=== PATIENT | male | born 1995 | race Caucasian/White ===

== ENCOUNTER 2019-05-25 03:43 | Emergency (ER) | payer BC ==
[2019-05-25] MEDS ORDERED: Ondansetron 4 MG Tab.DIS PO ONE (04:31)
[2019-05-25] MEDS ORDERED: Acetaminophen/oxyCODONE 325-5 MG Tab PO ONE (04:31)
--- NOTE | 2019-05-25 04:34 | EDM.PDOC ---
ED HPI GENERAL MEDICAL PROBLEM - General Chief Complaint: ENT Problem Stated Complaint: LEFT SIDE MOUTH/JAW PAIN Time Seen by Provider: 05/25/19 04:20 Source of Information: Reports: Patient History Limitations: Reports: No Limitations - History of Present Illness INITIAL COMMENTS - FREE TEXT/NARRATIVE: 4-year-old male presents to the ED with his with severe left mandibular pain. States started out as a dull ache discomfort over the last 24 hours and has progressed to severe intense pain that is constant. It radiates up towards the left ear but is centered mostly at the angle of his left mandible. He had recent dental work done in February of this year and did have panoramic x-rays done. He was told his right upper wisdom tooth is pushing against his other teeth but the other teeth although they are unable erupted do not appear to be coming in abnormally. Is there were bothering him the hip and left alone. He has had no injuries to his face or jaw. No recent colds or sinus congestion. Patient is taking 4 Aleve tablets without any relief of the pain. Onset: Gradual Onset Date: 05/23/19 Duration: Day(s): (Started before bed night before last), Constant, Getting Worse Location: Reports: Face Quality: Reports: Ache (Left angle of mandible) Severity: Severe (constant severe aching pain.) Improves with: Reports: None ( 10 out of 10 ) Worsens with: Reports: Other (Worsens with clenching his teeth.) Context: Denies: Activity, Exercise, Lifting, Sick Contact, Trauma, Other Associated Symptoms: Reports: No Other Symptoms Treatments [employer]: Reports: NSAIDS Left Lower Jaw Pain Score (Numeric/FACES): 6 - Related Data Allergies Allergy/AdvReac Type Severity Reaction Status Date / Time No Known Allergies Allergy Verified 05/25/19 04:20 Home Meds: Home Meds oxyCODONE HCl/Acetaminophen [Percocet 5-325 mg Tablet] 1 - 2 each PO Q4H PRN # 24 tablet 05/25/19 [Rx] Past Medical History - Past Health History Medical/Surgical History: Denies Medical/Surgical History Social & Family History - Family History Family Medical History: Noncontributory - Living Situation & Occupation Occupation: Employed ED ROS ENT - Review of Systems Review Of Systems: See Below Constitutional: Reports: Decreased Appetite. Denies: Fever, Chills, Malaise, Weakness, Fatigue, Weight Loss HEENT: Reports: Dental Pain Respiratory: Reports: No Symptoms Cardiovascular: Reports: No Symptoms (Left mandibular pain at the angle of the mandible presumably from dental origin.) Endocrine: Reports: No Symptoms GI/Abdominal: Reports: No Symptoms : Reports: No Symptoms Musculoskeletal: Reports: No Symptoms Skin: Reports: No Symptoms Neurological: Reports: No Symptoms Psychiatric: Reports: No Symptoms Hematologic/Lymphatic: Reports: No Symptoms Immunologic: Reports: No Symptoms ED EXAM, ENT - Physical Exam Exam: See Below Exam Limited By: No Limitations General Appearance: WD/WN, Moderate Distress, Other (Seems to be in a good deal of pain. Temperature 36.0 pulse is 82 and sinus respiratory 16 sats 100% BP elevated 150/91.) Eye Exam: Bilateral Eye: Normal Inspection Ears: Normal External Exam, Normal TMs Mouth/Throat: Dental Pain, Other (There is very mild pain on firm palpation of the left lower second molar tooth with tongue blade. The tissue behind the second molar is minimally erythematous suggesting an unerupted wisdom tooth is causing his current pain syndrome. He has very minimal pain in his left temporomandibular joint.) Head: Atraumatic ( Otherwise do not appear to be infected the gingiva are normal without abscess obviously apparent.), Normocephalic Neck: Normal Inspection (No pain on firm palpation over his maxillary sinuses.) , Supple, Non-Tender, Full Range of Motion. No: Lymphadenopathy (L), Lymphadenopathy (R) Respiratory/Chest: No Respiratory Distress, Lungs Clear, Normal Breath Sounds, No Accessory Muscle Use, Chest Non-Tender Course - Vital Signs Last Recorded V/S: Last Vital Signs Temp 36.0 C 05/25/19 04:17 Pulse 82 05/25/19 04:17 Resp 16 05/25/19 04:17 BP 150/91 H 05/25/19 04:17 Pulse Ox 100 05/25/19 04:17 - Orders/Labs/Meds Meds: Medications Discontinued Medications Generic Name Dose Route Start Last Admin Trade Name Freq PRN Reason Stop Dose Admin Ondansetron HCl 4 mg 05/25/19 04:31 05/25/19 04:35 Zofran Odt PO 05/25/19 04:32 4 mg ONETIME ONE Administration Oxycodone/Acetaminophen 2 tab 05/25/19 04:31 05/25/19 04:35 Percocet 325-5 Mg PO 05/25/19 04:32 2 tab ONETIME ONE Administration - Radiology Interpretation Free Text/Narrative:: 24-year-old male presents the ED with left mandibular pain. Were able to localize the pain pretty well to the left angle of the mandible. His mandibular function is normal although he has minimal pain on palpation of the left temporomandibular joint. Contraction of the masseter muscle does cause some increased pain. Firm palpation with tongue blade over the left lower second molar cause very minimal discomfort. I suspect his current pain syndrome is due to on it on erupted left lower third molar tooth. Floor of the mouth is otherwise normal. Oropharynx is normal. Percocet 5/325 mg tabs 2 with Zofran 4 mg sublingual tablet in the ED. Prescription written for 24 tablets of Percocet 5/325 mg strength to be taken one or 2 every 4-6 hours for pain relief. He is to follow-up with dentist as soon as possible. I suspect the patient will likely last a good week to 10 days due to unerupted tooth. Departure - Departure Time of Disposition: 04:31 Disposition: Home, Self-Care 01 Condition: Fair Clinical Impression: Pain, dental - Discharge Information *PRESCRIPTION DRUG MONITORING PROGRAM REVIEWED*: No *COPY OF PRESCRIPTION DRUG MONITORING REPORT IN PATIENT MARIVEL: No Prescriptions: oxyCODONE HCl/Acetaminophen [Percocet 5-325 mg Tablet] 1 - 2 each PO Q4H PRN # 24 tablet PRN Reason: pain relief. Referrals: PCP,None [Primary Care Provider] - Forms: ED Department Discharge Additional Instructions: Evaluation in the ER tonight in regards to diffuse left lower mandible pain. Emanation reveals pain is coming likely from an unerupted left third molar tooth or wisdom tooth. There is minimal pain on delayed examination of the second lower molar tooth. Suggest consultation with your dentist was done recent panoramic x-rays of your teeth to see where the location of this tooth is. Otherwise further panoramic x-rays need to be done to make sure there is no abscess developing on the root of the second molar tooth. In the meantime treatment is Percocet tabs 5/3/25 milligrams 2 tablets usually every 4-6 hours needed for pain relief. Continue Motrin 600 mg every 6 hours to reduce pain and inflammation as well. Follow-up with dentist when able.
== END 2019-05-25 04:40 | disposition home or self-care (01) ==
LOC: JD.ED 03:43
DX: K08.89 Other specified disorders of teeth and supporting structures (principal)
CPT/HCPCS: 99283; A9270

== ENCOUNTER 2020-07-02 21:26 | Emergency (ER) | payer BC ==
--- NOTE | 2020-07-02 21:56 | EDM.PDOC ---
ED HPI GENERAL MEDICAL PROBLEM - General Chief Complaint: Respiratory Problem Stated Complaint: chills headache shakes Time Seen by Provider: 07/02/20 21:54 - History of Present Illness INITIAL COMMENTS - FREE TEXT/NARRATIVE: 25-year-old male presents to the emergency room with a headache. This headache started yesterday gradually got worse and really got nasty today. This right-sided headache seems to come from the base of his neck and radiate up towards his right forehead and above his right ear. He has had some associated chills. Patient has not had any vision changes with this. He has some mild nausea. This headache seems to worsen with activities and turning his head. The patient does not have a history of headaches and does not have a family history of headache syndromes. Right Headache Pain Score (Numeric/FACES): 5 - Related Data Allergies Allergy/AdvReac Type Severity Reaction Status Date / Time No Known Allergies Allergy Verified 05/25/19 04:20 Home Meds: Home Meds . [No Known Home Meds] 07/02/20 [History] Past Medical History - Past Health History Medical/Surgical History: Denies Medical/Surgical History Social & Family History - Family History Family Medical History: No Pertinent Family History - Caffeine Use Caffeine Use: Reports: None - Living Situation & Occupation Occupation: Employed ED ROS GENERAL - Review of Systems Review Of Systems: See Below Constitutional: Reports: Chills. Denies: Fever HEENT: Reports: No Symptoms Respiratory: Reports: No Symptoms, Cough Endocrine: Reports: No Symptoms GI/Abdominal: Reports: Nausea. Denies: Abdominal Pain, Constipation, Diarrhea, Vomiting : Reports: No Symptoms Musculoskeletal: Reports: No Symptoms Skin: Reports: No Symptoms Neurological: Reports: Headache Psychiatric: Reports: No Symptoms Hematologic/Lymphatic: Reports: No Symptoms ED EXAM, GENERAL - Physical Exam Exam: See Below Exam Limited By: No Limitations General Appearance: Alert, No Apparent Distress Eye Exam: Bilateral Eye: EOMI, Normal Inspection, PERRL Ears: Normal External Exam, Normal Canal, Hearing Grossly Normal, Normal TMs Nose: Normal Inspection, Normal Mucosa, No Blood Throat/Mouth: Normal Inspection, Normal Lips, Normal Teeth, Normal Gums, Normal Oropharynx, Normal Voice, No Airway Compromise Head: Atraumatic, Normocephalic Neck: Normal Inspection, Supple, Other (Patient has marked paraspinous tenderness in the right and at the insertion of the skull. This does elicit the pain that he has been complaining of.). No: Lymphadenopathy (L), Lymphadenopathy (R), Tender Midline Respiratory/Chest: No Respiratory Distress, Lungs Clear, Normal Breath Sounds Cardiovascular: Regular Rate, Rhythm, No Edema, No Murmur GI/Abdominal: Normal Bowel Sounds, Soft, Non-Tender Back Exam: Normal Inspection. No: CVA Tenderness (L), CVA Tenderness (R) Extremities: Normal Inspection, No Pedal Edema Neurological: Alert, Oriented, Normal Cognition, Other (Cranial nerves II through XII grossly intact all muscle groups the upper and lower extremities are equal and appropriate bilaterally. Cerebellar testing is within normal limits. Deep tendon reflexes are equal and appropriate at the brachial radialis bilaterally.) Skin Exam: Warm, Dry, Intact Lymphatic: No Adenopathy Course - Vital Signs Last Recorded V/S: Last Vital Signs Temp 36.6 C 07/02/20 22:01 Pulse 93 07/02/20 22:01 Resp 20 07/02/20 22:01 BP 140/88 07/02/20 22:01 Pulse Ox 99 07/02/20 22:01 - Orders/Labs/Meds Orders: Active Orders 24 hr Category Date Time Status CORONAVIRUS COVID-19 PCR PH[facility] Stat Lab 07/02/20 22:45 Received Isolation [COMM] Routine Oth 07/02/20 22:19 Ordered Labs: Laboratory Tests 07/02/20 07/02/20 Range/Units 22:45 22:45 WBC 9.03 (4.23-9.07) K/mm3 RBC 5.60 (4.63-6.08) M/mm3 Hgb 15.6 (13.7-17.5) gm/dl Hct 47.5 (40.1-51.0) % MCV 84.8 (79.0-92.2) fl MCH 27.9 (25.7-32.2) pg MCHC 32.8 (32.2-35.5) g/dl RDW Std Deviation 42.6 (35.1-43.9) fL Plt Count 292 (163-337) K/mm3 MPV 9.2 L (9.4-12.3) fl Neut % (Auto) 66.3 (34.0-67.9) % Lymph % (Auto) 25.7 (21.8-53.1) % Travis % (Auto) 6.4 (5.3-12.2) % Eos % (Auto) 0.8 (0.8-7.0) Baso % (Auto) 0.7 (0.1-1.2) % Neut # (Auto) 5.99 H (1.78-5.38) K/mm3 Lymph # (Auto) 2.32 (1.32-3.57) K/mm3 Travis # (Auto) 0.58 (0.30-0.82) K/mm3 Eos # (Auto) 0.07 (0.04-0.54) K/mm3 Baso # (Auto) 0.06 (0.01-0.08) K/mm3 Sodium 139 (136-145) mEq/L Potassium 3.6 (3.5-5.1) mEq/L Chloride 104 (98-107) mEq/L Carbon Dioxide 25 (21-32) mEq/L Anion Gap 13.6 (5-15) BUN 15 (7-18) mg/dL Creatinine 1.1 (0.7-1.3) mg/dL Est Cr Clr Drug Dosing 107.44 mL/min Estimated GFR (MDRD) > 60 (>60) mL/min BUN/Creatinine Ratio 13.6 L (14-18) Glucose 113 H (74-106) mg/dL Calcium 8.7 (8.5-10.1) mg/dL Total Bilirubin 0.4 (0.2-1.0) mg/dL AST 27 (15-37) U/L ALT 72 H (16-63) U/L Alkaline Phosphatase 108 (46-116) U/L Total Protein 7.4 (6.4-8.2) g/dl Albumin 3.7 (3.4-5.0) g/dl Globulin 3.7 gm/dL Albumin/Globulin Ratio 1.0 (1-2) Meds: Medications Discontinued Medications Generic Name Dose Route Start Last Admin Trade Name Freq PRN Reason Stop Dose Admin Diphenhydramine HCl 25 mg 07/02/20 22:15 07/02/20 22:42 Benadryl IVPUSH 07/02/20 22:16 25 mg ONETIME ONE Administration Lactated Ringer's 1,000 mls @ 999 mls/hr 07/02/20 22:15 07/02/20 22:41 Ringers, Lactated IV 07/02/20 23:15 999 mls/hr .BOLUS ONE Administration Lorazepam 1 mg 07/02/20 22:15 07/02/20 22:42 Ativan IVPUSH 07/02/20 22:16 1 mg ONETIME ONE Administration Ondansetron HCl 4 mg 07/02/20 22:15 07/02/20 22:42 Zofran IVPUSH 07/02/20 22:16 4 mg ONETIME ONE Administration - Re-Assessments/Exams Free Text/Narrative Re-Assessment/Exam: 07/03/20 00:26 Patient received a liter of LR 25 5 mg of Benadryl IV 1 mg of Ativan 4 mg of Zofran and he is doing much better he would like to go home and get some rest. Departure - Departure Time of Disposition: 00:27 Disposition: Home, Self-Care 01 Clinical Impression: Tension headache - Discharge Information Referrals: PCP,None [Primary Care Provider] - Forms: ED Department Discharge Additional Instructions: Return to the emergency room with any questions problems or worsening symptoms. Go home and get some sleep. You were given some medication that can cause some sedation. Make sure you get a ride home from the emergency room. Do not drive or return to work within 12 hours of receiving this medication Sepsis Event Note (ED) - Focused Exam Vital Signs: Vital Signs Temp Pulse Resp BP Pulse Ox 07/02/20 22:01 36.6 C 93 20 140/88 99 - My Orders Last 24 Hours: My Active Orders 07/02/20 22:19 Isolation [COMM] Routine 07/02/20 22:45 CORONAVIRUS COVID-19 PCR PHL Stat - Assessment/Plan Last 24 Hours: My Active Orders 07/02/20 22:19 Isolation [COMM] Routine 07/02/20 22:45 CORONAVIRUS COVID-19 PCR PHL Stat
[2020-07-02] MEDS ORDERED: Lactated Ringers 1,000 ML IV ONE (22:15)
[2020-07-02] MEDS ORDERED: diphenhydrAMINE 50 MG/ML SDV IVPUSH ONE (22:15)
[2020-07-02] MEDS ORDERED: LORazepam 2 MG/ML SDV IVPUSH ONE (22:15)
[2020-07-02] MEDS ORDERED: Ondansetron 4 MG/2 ML SDV IVPUSH ONE (22:15)
== END 2020-07-03 00:37 | disposition home or self-care (01) ==
LOC: JD.ED 21:26
DX: G44.209 Tension-type headache, unspecified, not intractable (principal); Z20.828 Contact with and (suspected) exposure to other viral communicable diseases
CPT/HCPCS: 36415; 80053; 85025; 87635; 87804; 96374; 96375; 99284; J1200; J2060; J2405; J7120; 99283; U0002